=== PATIENT | male | born 1965 | race African-American/Black ===

== ENCOUNTER 2024-08-12 22:46 | Emergency (ER) | payer OTHER ==
[~2024-08-12] VITALS: Ht 167.6 cm; Wt 79.4 kg
[2024-08-12 22:50] VITALS: PULSE 96; RESP 18; TEMP 97.6
[2024-08-12] MEDS: Morphine 4mg INJECTION 4 MG/ML INJ IV ONE (23:30)
[2024-08-12] MEDS: KETOROLAC TROMETHAMINE 30 MG/ML VIAL IV STA (23:30)
[2024-08-13] MEDS: Morphine 4mg INJECTION 4 MG/ML INJ IV ONE (00:34)
[2024-08-13] MEDS ORDERED: HYDROCODON-ACE1 EA11 PO (02:04)
[2024-08-13] MEDS: ACETAMINOPHEN 325 MG TAB PO ONE (02:11)
[2024-08-13] MEDS: LORAZEPAM INJ 2 MG/ML VIAL IV ONE (02:57)
[2024-08-13 03:01] VITALS: BP 121/65; PULSE 76; RESP 18; TEMP 98.3; O2SAT 99
== END 2024-08-13 02:08 | disposition home or self-care (01) ==
LOC: FSED 23:06
DX: M54.50 Low back pain, unspecified (principal); M25.552 Pain in left hip; I10 Essential (primary) hypertension; E11.65 Type 2 diabetes mellitus with hyperglycemia; F31.9 Bipolar disorder, unspecified; G89.29 Other chronic pain
CPT/HCPCS: 74176; 99284; J1885; J2270 ×2